=== PATIENT | male | born 1965 | race Caucasian/White ===

== ENCOUNTER 2021-05-16 15:52 | Emergency (ER) | payer BC ==
[2021-05-16 17:36] LABS: #Basophils 0.1 10x3/uL (0.0-0.2); #Eosinphils 0.1 10x3/uL (0.0-0.5); #Monocytes 0.6 10x3/uL (0.0-1.1); #Neutrophils 6.9 10x3/uL (1.5-8.4); %Basophils 0.9 % (0.0-2.0); %Eosinophils 1.7 % (0.0-6.0); %Lymphocytes 7.3 % (18.0-47.0); %Monocytes 7.6 % (0.0-10.0); %Neutrophils 81.6 % (40.0-75.0); Hemoglobin 12.9 g/dL (13.5-17.5); Mean Corpuscular HGB CONC 33.7 g/dL (32.0-36.0); Mean Corpuscular Hemoglobin 30.1 pg (27.0-33.0); Mean Corpuscular Volume 89.5 fl (81.2-95.1); Mean Platelet Volume 12.7 fl (7.4-10.4); RBC Distribution Width 20.1 % (11.5-14.5); Red Blood Cell (RBC) Count 4.28 10x6/uL (4.32-5.72); White Blood Cell (WBC) Count 8.5 10x3/uL (3.5-10.5)
[2021-05-16 17:40] LABS: Platelet Count 194 10x3/uL (150-450)
[2021-05-16 17:46] LABS: INR-International Normal Ratio 1.5; PTT 31.4 sec (22.0-33.0); Prothrombin Time 16.1 sec (9.5-12.1)
[2021-05-16 18:37] LABS: ALT (SGPT) 78 U/L (8-55); AST (SGOT) 77 U/L (5-34); Albumin 3.2 g/dL (3.5-5.0); Alkaline Phosphatase 317 U/L (40-110); Anion Gap 17 mmol/L (10-20); BUN (Urea Nitrogen) 29 mg/dL (8.4-25.7); Bilirubin, Total 21.4 mg/dL (0.2-1.2); CK (CPK) 72 U/L (30-200); Calc. Creatinine Clearance 0 mL/min (70-130); Calcium 9.2 mg/dL (7.8-10.44); Carbon Dioxide 21 mmol/L (22-29); Chloride 106 mmol/L (98-107); Globulin 3.9 g/dL (2.4-3.5); Glucose 103 mg/dL (70-105); Lipase 14 U/L (8-78); Magnesium 1.6 mg/dL (1.6-2.6); Potassium 3.1 mmol/L (3.5-5.1); Protein, Total 7.1 g/dL (6.0-8.3); Sodium 141 mmol/L (136-145)
[2021-05-17 00:59] LABS: HBCM Index 0.07 S/CO (0-0.79); HBSAg Index 0.25 S/CO (0-0.99); Hep A IgM AB Non-Reactive (NonReactive); Hep A IgM S/CO 0.08 S/CO (0-0.79); Hep B Surf Ag Non-Reactive S/CO (NonReactive); Hep C IgG Ab Non-Reactive (NonReactive); Hep C Index 0.11 S/CO (0-0.79); Hepatitis B Core IgM Abs Non-Reactive (NonReactive)
== END 2021-05-16 22:42 | disposition home or self-care (01) ==
LOC: CSHERS 15:52
DX: E80.7 Disorder of bilirubin metabolism, unspecified (principal); R17 Unspecified jaundice; R60.0 Localized edema; I10 Essential (primary) hypertension; I48.91 Unspecified atrial fibrillation; E66.9 Obesity, unspecified; Z68.45 Body mass index [BMI] 70 or greater, adult; Z79.01 Long term (current) use of anticoagulants; Z79.899 Other long term (current) drug therapy
CPT/HCPCS: 36415; 76705; 80053; 80074; 82550; 83615; 83690; 83735; 85025; 85610; 85730